=== PATIENT | male | born 1985 | race Caucasian/White ===

== ENCOUNTER 2024-05-23 18:37 | Emergency (ER) | payer OTHER ==
[2024-05-23] MEDS: Tranexamic Acid 1,000 MG/10 ML Vial TOP ONE (21:48)
[2024-05-23] MEDS: Silver Nitrate Applicator Each TOP ONE (21:48)
== END 2024-05-23 23:15 | disposition home or self-care (01) ==
LOC: MW.ED 18:37
DX: K64.4 Residual hemorrhoidal skin tags (principal); I10 Essential (primary) hypertension; Z79.899 Other long term (current) drug therapy; Z75.8 Other problems related to medical facilities and other health care
CPT/HCPCS: 99283; J3490